=== PATIENT | female | born 1980 | race Caucasian/White ===

== ENCOUNTER 2019-01-06 00:34 | Emergency (ER) | payer BC, SELFPAY ==
[2019-01-06 00:35] VITALS: BP 123/87; PULSE 88; RESP 20; TEMP 36.7; O2SAT 99; BMI 44.1
[2019-01-06 00:37] VITALS: O2SAT 97
--- NOTE | 2019-01-06 01:00 | EKG12_ITS ---
Test Reason : CP Blood Pressure : / mmHG Vent. Rate : 077 BPM Atrial Rate : 077 BPM P-R Int : 152 ms QRS Dur : 080 ms QT Int : 368 ms P-R-T Axes : 039 -03 006 degrees QTc Int : 416 ms Normal sinus rhythm Poor R- wave Progression Moderate voltage criteria for LVH, may be normal variant Borderline ECG Confirmed by FRAN DAMIAN, JES ([id number]), technical editor AL SIERAR ([id number]) on 01/07/2019 1:29:37 PM Referred By: LUIS Confirmed By:JES PETERS MD
--- NOTE | 2019-01-06 01:00 | RAD_ITS ---
STUDY: X-RAY CHEST REASON FOR EXAM: Female, 38 years old. Cough. TECHNIQUE: PA and lateral chest. COMPARISON: 02/01/2014 CXR FINDINGS: No apparent pneumothorax, pneumonia, pleural effusion, or edema. Cardiac silhouette, elsa and mediastinal contours are within normal limits. No acute osseous abnormality. No evidence of free air under the diaphragm. RAD/Chest PA and Lateral IMPRESSION: Negative chest radiograph. Electronically Signed: Leon Sharp, at 1:31 EDT Tel , Service support ,
--- NOTE | 2019-01-06 01:01 | ED.DCSUM_ITS ---
History of Present Illness Chief Complaint: Cold Sx Informant: Patient Narrative: Stated she has had sinus inflammation for the last 4 days. She has a stuffy nose. She is using [id number]'s with moderate relief of symptoms. She has ear pressure as well. She stated she got up tonight and felt lightheaded and like she was going to pass out. She occasionally gets dizzy spells when she gets up too quickly. Currently she does not have any symptoms. She had a mild cough. No sick contacts. She felt some chills this evening. Comes in for further evaluation. Past Medical History - Allergies and Home Meds Allergies/Adverse Reactions: Allergies fish derived Allergy (Severe, Verified 01/06/19 00:36) Unknown HIVE, SOB, THROAT SWELLING aspirin Allergy (Verified 01/06/19 00:36) Unknown THINS BLOOD TOO MUCH codeine Allergy (Verified 01/06/19 00:36) Unknown SEVERE HEADACHE iodine Allergy (Uncoded 01/06/19 00:36) Anaphylaxis HIVES, THROAT SWELLING, SOB ammonia Adverse Reaction (Uncoded 01/06/19 00:36) Other PASSES OUT bleach Adverse Reaction (Uncoded 01/06/19 00:36) Other PASSES OUT Primary Care Physician: Care Physician,No Primary [Primary Care Provider] - Prior records reviewed: Yes Past Medical History: - - Viewed Surgical History: - - Reviewed Lives: Spouse/ Significant Other Smoking Status: Former smoker Alcohol: None Drugs: None Review of Systems General: Reports: Chills. Denies: Fever, Sweats Eyes: Denies: Visual changes - bilaterally, Diplopia ENT: Reports: Bilateral ear pain, Rhinorrhea. Denies: Sore throat Cardiovascular: Denies: Chest pain, Palpitations Respiratory: Reports: Cough. Denies: Dyspnea, Dyspnea on exertion Gastrointestinal: Denies: Abdominal pain, Nausea, Vomiting, Diarrhea, Melena, Hematochezia Genitourinary: Denies: Dysuria, Hematuria, Frequency Musculoskeletal: Denies: Back pain, Extremity Pain Skin: Denies: Rash, Wounds Neurological: Denies: Headache, Weakness, Numbness Physical Exam Vital Signs/Narrative: Vital Signs Temp Pulse Resp BP Pulse Ox 01/06/19 00:35 98.1 F 88 20 H 123/87 H 99 General: Well nourished, Well developed, No Acute Distress Head: Normocephalic, Atraumatic Eyes: Perrl, EOMI ENT: Moist mucous membranes, No rhinorrhea, Nasal congestion Neck: Supple, Nontender Cardiovascular: Regular rate, Regular rhythm, No murmurs Respiratory: No distress, CTA bilaterally, Chest nontender Abdomen: Soft, Nontender, Nondistended, Normal bowel sounds Back: Nontender, Normal Inspection Extremities: Nontender, No edema Skin: Normal color, No rash Neurological: Alert, Oriented x3, Cranial nerves II-XII grossly intact, Normal Strength, Normal Sensation Psychological: Normal affect, Normal Mood Diagnostic/Tx/Re-eval Laboratory Tests 01/06/19 01/06/19 Range/Units 01:10 01:10 WBC 8.5 (4.4-11.0) K/mm3 RBC 4.81 (4.2-5.4) M/mm3 Hgb 13.2 (12.0-15.0) g/dL Hct 41.9 (37-47) % MCV 87.1 (81-99) fL MCH 27.4 (27.0-32.0) pg MCHC 31.5 L (32-36) g/dL RDW Std Deviation 43.3 (35.1-43.9) fl RDW Coeff of Baylee 13.5 (11.6-14.6) % Plt Count 228 (150-450) K/mm3 MPV 11.0 (6.2-12.0) fl Immature Gran % (Auto) 0.200 (0.0-0.9) % Neut % (Auto) 49.7 (47-70) % Lymph % (Auto) 39.2 (19-41) % Meeker % (Auto) 6.1 (0-10) % Eos % (Auto) 4.2 (0-5) % Baso % (Auto) 0.6 (0-1) % Absolute Neuts (auto) 4.2 (2.0-7.7) X10^3/uL Absolute Lymphs (auto) 3.35 (0.83-4.51) X10^3/uL Nucleated RBC % 0 (0-5) % Sodium 147 H (136-145) mmol/L Potassium 4.1 (3.5-5.1) mmol/L Chloride 111 H (98-107) mmol/L Carbon Dioxide 27.0 (21.0-32.0) mmol/L Anion Gap 9 (5-15) BUN 15 (7-18) mg/dL Creatinine 1.06 H (0.55-1.02) mg/dL Estim Creat Clear Calc 60.11 ml/min Est GFR (MDRD) Af Amer 75 (>60) mL/min Est GFR (MDRD) Non-Af 62 (>60) mL/min BUN/Creatinine Ratio 14.2 (10-20) RATIO Glucose 100 (74-106) mg/dL Calcium 9.1 (8.5-10.1) mg/dL Troponin I < 0.015 (<0.045) ng/mL - Medical Decision Making Lab work chest x-ray EKG obtained.. Lab work shows a slight elevation in sodium. Creatinine is 1.0. Troponin negative. EKG shows sinus rhythm at a rate of 77. T wave inversion inferiorly 3 unchanged from prior. No acute ischemic f indings. Chest x-ray normal. At this time I feel the patient likely has upper respiratory infection without pneumonia. I feel she likely had orthostatic symptoms when she got up too quickly felt lightheaded. She will drink plenty fluids. She will follow-up as an outpatient. She will do [id number] symptomatic management for her upper respiratory infection sinus congestion ED Disposition - Plan for ED Patient: Disposition: [facility] Diagnosis: Vasovagal attack, Sinus congestion, Respiratory infection, upper Instructions: Understanding Your Sinuses Referrals: Joesph Romano MD [STAFF PHYSICIAN] -
[2019-01-06 01:16] LABS: Absolute Lymphocyte Count 3.35 X10^3/uL (0.83-4.51); Absolute Neutrophil Count 4.2 X10^3/uL (2.0-7.7); Basophil# 0.05 X10^3/uL; Basophil% 0.6 % (0-1); Eosinophil# 0.36 X10^3/uL; Eosinophils% 4.2 % (0-5); Hematocrit 41.9 % (37-47); Hemoglobin 13.2 g/dL (12.0-15.0); Lymphocyte # 3.35 X10^3/ul (4.0); Lymphocyte % 39.2 % (19-41); Mean Corp Hgb Conc 31.5 g/dL (32-36); Mean Corpuscular Hgb 27.4 pg (27.0-32.0); Mean Corpuscular Volume 87.1 fL (81-99); Monocyte# 0.52 X10^3/uL; Monocyte% 6.1 % (0-10); NRBC Flagged by Analyzer 0 % (0-5); Neutrophil # 4.24 X10^3/uL (2.7-7.7); Neutrophil % 49.7 % (47-70); Platelet Count 228 K/mm3 (150-450); RBC Distribution Width CV 13.5 % (11.6-14.6); RBC Distribution Width SD 43.3 fl (35.1-43.9); Red Blood Count 4.81 M/mm3 (4.2-5.4); White Blood Count 8.5 K/mm3 (4.4-11.0)
[2019-01-06 01:36] LABS: Anion Gap 9 (5-15); BUN 15 mg/dL (7-18); BUN/Creat Ratio 14.2 RATIO (10-20); Calcium,Total 9.1 mg/dL (8.5-10.1); Chloride 111 mmol/L (98-107); Creatinine, Serum 1.06 mg/dL (0.55-1.02); EST Glomerular Filtration Rate 62 mL/min (>60); Est Glom Filt Rate - Afr Amer 75 mL/min (>60); Estimated Creatinine Clearance 60.11 ml/min; Glucose 100 mg/dL (74-106); Potassium 4.1 mmol/L (3.5-5.1); Sodium Level 147 mmol/L (136-145)
--- NOTE | 2019-01-06 01:43 | ED.RN ---
DR SMITH NOTIFIED OF NA AND CHLORIDE RESULTS
[2019-01-06 01:45] VITALS: RESP 16
== END 2019-01-06 01:50 | disposition home or self-care (01) ==
PROVIDERS: Emergency Provider Emergency Medicine
DX: J06.9 Acute upper respiratory infection, unspecified (principal); R55 Syncope and collapse; E87.0 Hyperosmolality and hypernatremia; Z88.5 Allergy status to narcotic agent; Z88.6 Allergy status to analgesic agent; Z87.891 Personal history of nicotine dependence
CPT/HCPCS: 71046; 80048; 84484; 85025; 93005; 99283; A4216

== ENCOUNTER 2021-09-07 18:32 | Emergency (ER) | payer OTHER, MEDICAID, SELFPAY ==
[2021-09-07 18:33] VITALS: BP 128/83; PULSE 89; RESP 16; TEMP 36.1; O2SAT 98; BMI 57.0
--- NOTE | 2021-09-07 18:38 | RAD_ITS ---
STUDY: XR Knee Complete 4 Views or More 09/07/2021 6:54 PM REASON FOR EXAM: Female, 40 years old. INJURY TECHNIQUE: XR Knee Complete 4 Views or More RIGHT COMPARISON: None FINDINGS: Normal visualized distal femur. Normal visualized proximal tibia and fibula. Normal proximal tibiofibular articulation. There is mild degenerative arthrosis of the medial femorotibial compartment. Normal lateral femorotibial compartment. Normal patellofemoral articulation. The soft tissue structures are unremarkable. RAD/Knee 4 or More Views IMPRESSION: There is mild degenerative arthrosis of the medial femorotibial compartment. Electronically Signed: Blair Ontiveros MD at 18:55 EDT ,
--- NOTE | 2021-09-07 20:37 | ED.VIS.LOWEX ---
HPI History of Present Illness HPI Narrative: Patient presents with right knee pain that has been getting worse over the past couple months. Patient states it became worse yesterday while she was walking up and down a lot of stairs. Patient states her knee feels like it gives out on her from time to time. Patient denies any specific trauma or injury. Patient describes her pain as sharp and stabbing. Patient states it is also worse going up and down hills. Patient denies any paresthesias. Chief Complaint: Lower Extremity Injury Informant: patient Onset/Context/Timing Onset: Month(s) Context: Gradual Onset Timing: Waxes and wanes Quality of Pain: Sharp and Stabbing Location: Right knee Worsened by: Stairs, hills Relieved by: Nothing Associated Symptoms Associated Symptoms: Positive for Weakness; Negative for Parasthesia and Loss of Funtion PFSH COUNTS INCLUDE 234 BEDS AT THE [facility] Medical History Anxiety Depression History of ovarian cancer History of uterine cancer PTSD (post-traumatic stress disorder) Home Medications albuterol sulfate 1 - 2 puff INHALATION Q6H PRN PRN 01/06/19 [History Last Taken Unknown] dicyclomine 60 mg PO BID 09/07/21 [History Last Taken Unknown] lamotrigine 100 mg PO DAILY 09/07/21 [History Last Taken Unknown] meloxicam 15 mg PO DAILY #10 tab 09/07/21 [Rx Last Taken Unknown] omeprazole 20 mg PO DAILY 09/07/21 [History Last Taken Unknown] prazosin 1 mg PO DAILY 09/07/21 [History Last Taken Unknown] sertraline 50 mg PO DAILY 09/07/21 [History Last Taken Unknown] ziprasidone HCl 20 mg PO BID 09/07/21 [History Last Taken Unknown] Allergy/AdvReac Type Severity Reaction Status Date / Time fish derived Allergy Severe Unknown Verified 01/06/19 00:36 aspirin Allergy Unknown Verified 01/06/19 00:36 codeine Allergy Unknown Verified 01/06/19 00:36 iodine Allergy Anaphylaxis Uncoded 01/06/19 00:36 ammonia AdvReac Other Uncoded 01/06/19 00:36 bleach AdvReac Other Uncoded 01/06/19 00:36 Surgical History History of bilateral breast reduction surgery History of cholecystectomy Social History Smoking Status: Current every day smoker tobacco type: e-cigarettes substance use type: marijuana ROS ROS ED Constitutional Constitutional ED: Denies chills or fever(s) Eyes Eyes: Denies blurry vision or change in vision ENT ENT ED: Denies rhinorrhea or sore throat Cardiovascular Cardiovascular: Denies chest pain or palpitations Respiratory/Chest Respiratory/Chest: Denies cough or dyspnea Gastrointestinal Gastrointestinal: Reports nausea; Denies vomiting Genitourinary Genitourinary ED: Denies dysuria or hematuria Musculoskeletal Musculoskeletal: Denies back pain or neck pain Integumentary Denies abscess or rash Neurologic Neurologic: Denies headache(s) or weakness Allergic/Immunologic Allergic/Immunologic ED: Denies mouth swelling or urticaria EXAM Physical Exam Const Vital Signs: 09/07/21 18:33 Temperature 97 F L Temperature Source Temporal Pulse Rate 89 Respiratory Rate 16 Blood Pressure 128/83 H Blood Pressure Mean 98 Pulse Ox 98 Oxygen Delivery Method Room Air Positive well nourished, well developed and obese General Appearance ED: well developed and NAD Nutritional Appearance: obese HEENT Reports moist mucous membranes Neck full ROM Thyroid: Negative for tender Extremity Extremity Narrative: There is diffuse tenderness over the right knee. There is no effusion. There is no edema or ecchymosis. Range of motion was slightly limited in flexion secondary to pain. There is no laxity appreciated. There is some guarding on examination however. There is no calf tenderness noted. Posterior tibial pulses are equal bilateral. Sensation was intact to light touch bilaterally in the lower extremities. Strength is 5/5 bilaterally in the lower extremities. Extensor mechanism is intact. Neuro oriented x3, CN's II-XII intact bilaterally, moves all extremities and no sensory deficits noted Sensorium / Orientation: alert Motor Exam: strength 5/5 throughout Psych mental status grossly normal MDM MDM MDM Narrative Medical decision making narrative: X-rays of the right knee were obtained. There are 4 views. On my interpretation, there is no acute fracture. There is no dislocation. There is some mild degenerative changes. Radiologist also interpreted the x-rays and agrees. Patient was advised that this may be irritation of the chondral surface of the patella. Patient was instructed to ice and elevate the right knee. Patient was given a prescription for meloxicam. Patient was instructed to follow-up with her primary care physician in 5 to 7 days. Patient understood and was agreeable with the plan. All questions were answered. Radiography Diagnostic Testing: Clinical Impression(s) from Imaging Studies Knee X-Ray 09/07/21 18:38 IMPRESSION: There is mild degenerative arthrosis of the medial femorotibial compartment. Electronically Signed: Blair Ontiveros MD at 18:55 EDT Reading Location ID and State: [facility] / [place] , Service support , Discharge Plan Triage Chief Complaint: Lower Extremity Injury ED Provider: Avery Hernandez Dx/Rx/DC Orders Clinical Impression: Knee pain, right, Chondromalacia of right patella, Morbid obesity with BMI of 50.0-59.9, adult Instructions: ED Knee Pain of Uncertain Cause Prescriptions: New meloxicam 15 mg tablet 15 mg PO DAILY Qty: 10 RF: 0 No Action albuterol sulfate 1 INHALER inhaler 1 - 2 puff inhalation Q6H PRN PRN (Reason: Sob &/Or Wheezing) RF: 0 prazosin 1 mg capsule 1 mg PO DAILY RF: 0 ziprasidone HCl 20 mg capsule 20 mg PO BID RF: 0 dicyclomine 20 mg tablet 60 mg PO BID RF: 0 omeprazole 20 mg capsule,delayed release(DR/EC) 20 mg PO DAILY RF: 0 sertraline 50 mg tablet 50 mg PO DAILY RF: 0 lamotrigine 100 mg tablet extended release 24hr 100 mg PO DAILY RF: 0 Primary Care Provider: Care Physician,No Primary Referrals: Navdeep Dueñas MD [NON-STAFF] - 5-7 Days Care Physician,No Primary [Primary Care Provider] - Disposition Disposition: Home, Self Care
[2021-09-07 21:00] VITALS: BP 120/77; PULSE 80; RESP 15
== END 2021-09-07 21:02 | disposition home or self-care (01) ==
PROVIDERS: Emergency Provider Emergency Medicine; Visit Provider Emergency Medicine
DX: M22.41 Chondromalacia patellae, right knee (principal); E66.01 Morbid (severe) obesity due to excess calories; Z68.43 Body mass index [BMI] 50.0-59.9, adult; F32.A Depression, unspecified; F41.9 Anxiety disorder, unspecified; F17.290 Nicotine dependence, other tobacco product, uncomplicated; Z79.899 Other long term (current) drug therapy
CPT/HCPCS: 73564; 99282